=== PATIENT | male | born 1965 | race Caucasian/White ===

== ENCOUNTER 2017-06-28 15:51 | Emergency (ER) | payer MEDICARE, SELFPAY ==
--- NOTE | 2017-06-28 09:21 | CT_ITS ---
CT abdomen pelvis w con CLINICAL INDICATION: Hematuria, abdominal pain, prior colon surgery, history of colon cancer ITS.REASON: ABD PAIN ORDERING PHYSICIAN: Marlon Williamson MD PATIENT AGE: 52 years COMPARISON: None TECHNIQUE: Axial images obtained with sagittal and coronal reformats. PROCEDURE: Oral Contrast: Gastroview IV Contrast: 75 mL's Isovue- FINDINGS: There are atelectatic changes in the right lung base. A rounded 1.5 cm nodule present in the right lung base posteriorly and may be related to pulmonary nodule versus a rounded area of atelectasis. The liver, gallbladder, spleen, adrenal glands, and pancreas are unremarkable. There is severe atrophy of the left kidney. There is mild dilatation of the right renal pelvicalyceal system and proximal ureter with lobular contour of the right kidney consistent with scarring. No definite ureteral calculi on the right. Unremarkable appendix. There is a left lower quadrant colostomy. There is dilated small bowel. A 9 cm long segment of thickened small bowel is present in the right lower quadrant. There is been prior hemicolectomy of the rectosigmoid region. There is a focal rounded soft tissue density in the mid pelvis anterior to the S1 level. This measures 3.7 cm cephalad to caudad, 3 cm AP and 3.3 cm transverse. Above the bladder. Before and after this mass adjacent small bowel is dilated with narrowing of the small bowel at this region and loss of fat plane between the small bowel and this mass. There is presacral thickening and increased soft tissue density in the rectal bed nonspecific. Urinary bladder is collapsed with a French catheter. 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 9 cm long segment of bowel wall thickening involving the small bowel in the right lower quadrant suspicious for an area of enteritis. Neoplasm is an additional consideration 2. 3.7 cm soft tissue mass in the upper posterior pelvis with associated narrowing and distention of the small bowel at this area causing partial small bowel obstruction suspicious for malignant adenopathy or mass. 3. Status post sigmoid and rectal resection with residual presacral and rectal bed soft tissue density with left lower quadrant colostomy 4. Severely atrophic left kidney with scarring of the right kidney and mild right-hydronephrosis and hydroureter etiology indeterminate 5. 15 mm right lower lobe nodule. Neoplasm not excluded. Follow-up recommended 6. Ankylosing spondylosis
[2017-06-28 16:00] VITALS: BP 154/83; PULSE 143; RESP 20; TEMP 36.4; O2SAT 98; BMI 35.4
[2017-06-28 16:50] VITALS: BP 135/78; BP 142/90; BP 143/91; PULSE 133; PULSE 134; PULSE 139
--- NOTE | 2017-06-28 17:05 | PC.NURSE ---
Gilmer CARLTON notified Rad of completion of gastrographin.
[2017-06-28 23:24] LABS: Microscopic, Urine URINE MICROSCOPIC (MICROSCOPIC)
[2017-06-28 23:34] LABS: Appearance,Urine CLOUDY (Clear); Bilirubin,Urine Negative (Negative); Blood, Urine 2+ (Negative); Color,Urine DK YELLOW (Yellow); Glucose,Urine (UA) Negative (Negative); Ketones,Urine Negative (Negative); Leukocyte Esterase,Urine 2+ (Negative); Nitrate,Urine POSITIVE (Negative); Protein,Urine 1+ (Negative)
[2017-06-28 23:45] LABS: Bacteria,Urine 4+ /lpf; Cystine Crystals,Urine 2+ /lpf; Squamous Epithelial Cell,Urine Occasional #/hpf (0-5); WBC,Urine TNTC #/hpf (0-3)
[2017-06-28 23:49] LABS: Activated Partial Thrombo Time 29.1 seconds (23.6-34.0); INR 0.97 (0.9-1.1); Prothrombin Time 10.5 seconds (9.4-11.8)
[2017-06-29 00:03] LABS: Alanine Aminotransferase 29 U/L (12-78); Albumin Level 3.7 gm/dL (3.4-5.0); Alkaline Phosphatase 164 U/L (46-116); Anion Gap 12.7 mEq/L (5-15); Aspartate Amino Transferase 23 U/L (15-37); Bilirubin,Total 1.6 mg/dL (0.2-1.0); Blood Urea Nitrogen 8 mg/dL (7-18); Calcium 9.3 mg/dL (8.5-10.1); Carbon Dioxide 27 mmol/L (21.0-32.0); Chloride 102 mmol/L (98-107); Creatinine,Serum 1.44 mg/dL (0.70-1.30); Estimated Glomerular Filt Rate 52 ml/min (>60); GFR (African American) > 60 ML/MIN (>60); Globulin 3.7 gm/dl (1.3-3.2); Glucose 169 mg/dL (74-106); Potassium 3.7 mmoL/L (3.5-5.1); Sodium 138 mmol/L (136-145); Total Protein,Serum 7.4 gm/dL (6.4-8.2)
[2017-06-29 00:14] VITALS: BP 144/86; PULSE 114; RESP 20; TEMP 37; O2SAT 98
[2017-06-29 01:11] LABS: Hematocrit 42.2 % (42.0-52.0); Hemoglobin 14.4 g/dL (14.1-18.0); Lymphocytes % 9.6 K/mm3 (10-50); Mean Corpuscular HGB Conc 34.2 g/dL (31.8-35.4); Mean Corpuscular Hemoglobin 29.7 pg (27.0-31.2); Mean Corpuscular Volume 86.7 fl (80-94); Mean Platelet Volume 7.9 fl (7.4-10.4); Monocytes % 5.3 % (1.7-9.3); Neutrophils % 83.3 % (37.0-80.0); Platelet Count 213 K/mm3 (142-424); Red Blood Count 4.87 M/mm3 (4.60-6.20); Red Cell Distribution Width 16.9 % (11.5-17.5); White Blood Count 5.6 K/mm3 (4.8-10.8)
[2017-06-29 01:12] LABS: Basophils % 0.4 % (0.1-2.0); Eosinophils # 0.1 K/mm3 (0.0-0.4); Eosinophils % 1.4 % (0.1-12.0); Lymphocytes # 0.5 K/mm3 (0.7-4.5); Monocytes # 0.3 K/mm3 (0.1-1.0); Neutrophils # 4.6 K/mm3 (1.8-7.8)
--- NOTE | 2017-06-29 12:51 | PC.NURSE ---
All late documentation entered per down time procedure.
== END 2017-06-28 20:40 | disposition home or self-care (01) ==
LOC: ER 22:27
PROVIDERS: Emergency Provider Emergency Medicine; Family Provider Nurse Practitioner Family; PCP Nurse Practitioner Family
DX: R31.9 Hematuria, unspecified (principal); K56.609 Unspecified intestinal obstruction, unspecified as to partial versus complete obstruction; C18.9 Malignant neoplasm of colon, unspecified; N13.30 Unspecified hydronephrosis
CPT/HCPCS: 74177; 80053; 81001; 85025; 85610; 85730; 87086; 87088; 87186; 96360; 96365; 99285